=== PATIENT | male | born 1965 | race Two or more races ===

== ENCOUNTER 2020-07-05 09:00 | Inpatient (IN) | payer OTHER ==
[~2020-07-05] VITALS: Ht 175.3 cm; Wt 88.5 kg
[2020-07-05] MEDS ORDERED: HYDROCHLOROTH12.5 MG PO (09:35)
[2020-07-05] MEDS ORDERED: SYNTHROID150 MCG PO (09:35)
[2020-07-05] MEDS ORDERED: MAXIMUM D3325 MCG PO (09:36)
[2020-07-05] MEDS ORDERED: COZAAR25 MG PO (09:36)
[2020-07-05] MEDS ORDERED: MIRALAX17 GM PO (09:36)
[2020-07-05] MEDS ORDERED: AMBIEN10 MG PO (09:36)
[2020-07-15] MEDS ORDERED: PERCOCET 5-3251 EACH PO (11:53)
[2020-07-15] MEDS ORDERED: ACID REDUCER20 M1 PO (11:53)
== END 2020-07-15 12:16 | disposition home or self-care (01) | DRG 331 ==
LOC: SURH 07-12 07:15 → O/R 07-12 07:15 → SURH 07-12 09:00
PROVIDERS: ADMIT Surgery; ATTEND Surgery
PROC: 0DBN4ZZ Excision of Sigmoid Colon, Percutaneous Endoscopic Approach (ICD-10-PCS; 2020-07-12)
PROC: 0DBP4ZZ Excision of Rectum, Percutaneous Endoscopic Approach (ICD-10-PCS; principal; 2020-07-12 14:45)
DX: K57.20 Diverticulitis of large intestine with perforation and abscess without bleeding (principal); I10 Essential (primary) hypertension; E03.8 Other specified hypothyroidism; R10.32 Left lower quadrant pain